=== PATIENT | male | born 1930 | race Caucasian/White ===

== ENCOUNTER 2016-10-16 06:55 | Observation (INO) | payer MEDICARE, OTHER ==
[2016-10-16 07:50] LABS: BASOPHILS 0.3 % (0.0-2.0); EOSINOPHILS 0.9 % (0.0-6.0); EOSINOPHILS# 0.1 X 10^3uL (0.0-0.4); HEMATOCRIT 51.7 % (42.0-54.0); HEMOGLOBIN 17.5 g/dL (14.0-18.0); LYMPHOCYTES 13.8 % (20.0-40.0); LYMPHOCYTES# 1.2 X 10^3uL (0.8-3.8); MEAN CELL VOLUME 92.2 fL (84.0-102.0); MEAN CORPUS. HGB CONCENTRATION 33.7 g/dL (32.0-36.0); MEAN CORPUSCULAR HEMOGLOBIN 31.1 pg (29.0-35.0); MEAN PLATELET VOLUME 9.8 fL (7.4-10.4); MONOCYTES 6.4 % (2.0-10.0); MONOCYTES# 0.5 X 10^3uL (0.2-1.0); NEUTROPHILS 78.6 % (54.0-75.0); NEUTROPHILS# 6.7 X 10^3uL (2.6-6.7); PLATELET COUNT 179 X 10^3uL (130-440); RED BLOOD COUNT 5.61 X 10^6uL (4.20-6.10); WHITE BLOOD COUNT 8.5 X 10^3uL (3.9-10.7)
[2016-10-16 08:00] LABS: BLOOD UREA NITROGEN 21 mg/dL (9-20); CHLORIDE 106 mmol/L (98-107); CREATININE 1.1 mg/dL (0.7-1.3); GLUCOSE 98 mg/dL (70-100); SODIUM 142 mmol/L (137-145)
[2016-10-16] MEDS ORDERED: HOME MEDICATION LIST NEEDED 1 EA EACH MC ONE (10:23)
[2016-10-16] MEDS ORDERED: MECLIZINE HCL 12.5 MG TABLET PO ONE (10:28)
--- NOTE | 2016-10-16 11:37 | ER PHYSICIAN DOCUMENTATION ---
Physician Documentation [facility] Name:Haseeb Broussard Age:86 yrs Sex:Male :1930 Arrival Date:10/16/2016 Time:06:55 Bed4 Private MD:Michael Shields ED, Scott Disposition: 10/16/16 10:21 Admit ordered for Smith Sutherland. Preliminary diagnosis is Dizziness - Vertigo. - Bed requested for Medical/Surgical. - Condition is Serious. - Problem is new. - Symptoms are unchanged. 23 HR OBS Yes HPI: 10/16 07:44 This 86 yrs old Male presents to ER via EMS with complaints of Vertigo. sc 07:44 The patient presents with dizziness, feeling off balance. Onset: The symptom(s)/episode sc began/occurred last night, at 22:00. Context: occurred at home, occurred while the patient was at rest, just prior to the episode the patient experienced no apparent symptoms. Modifying factors: the symptoms are aggravated by movement of head, standing up. Associated signs and symptoms: Pertinent positives: nausea, chronic urinary retention. Severity of symptoms: At their worst the symptoms were moderate. Patient's baseline: Neuro: alert but confused, The patient has a previous history of vertigo. The patient has experienced similar episodes in the past, multiple times. Historical: - Allergies: Flomax; - Home Meds: 1. donepezil oral - PMHx: urinary retention ; HYPERTENSION; OSTEOARTHRITIS; DEMENTIA; Dizziness - Vertigo (June 09, 2015); - Tetanus: < 10 years. - Ebola Screening: : Patient denies exposure to infectious person. Patient denies travel to an Ebola-affected area in the 21 days before illness onset. . - Social history: Smoking status: Patient states was never smoker of tobacco. Patient uses alcohol but reports only rare drinking. Patient/guardian denies using marijuana. ROS: 07:45 Constitutional: Negative for fever, chills, and weight loss. sc Eyes: Negative for injury, pain, redness, and discharge. ENT: Negative for injury, pain, and discharge. Neck: Negative for injury, pain, and swelling. Cardiovascular: Negative for chest pain, palpitations, and edema. Respiratory: Negative for shortness of breath, cough, wheezing, and pleuritic chest pain. Back: Negative for injury and pain. MS/Extremity: Negative for injury and deformity. 07:45 Skin: Negative for injury, rash, and discoloration. sc 07:45 Abdomen/GI: Positive for nausea. 07:45 Neuro: Positive for dizziness. Exam: Constitutional: This is a well developed, well nourished patient who is awake, alert, and in no acute distress. Head/Face: Normocephalic, atraumatic. Eyes: Pupils equal round and reactive to light, extra-ocular motions intact. Lids and lashes normal. Conjunctiva and sclera are non-icteric and not injected. Cornea within normal limits. Periorbital areas with no swelling, redness, or edema. ENT: Nares patent. No nasal discharge, no septal abnormalities noted. Tympanic membranes are normal and external auditory canals are clear. Oropharynx with no redness, swelling, or masses, exudates, or evidence of obstruction, uvula midline. Mucous membranes moist. Neck: Trachea midline, no thyromegaly or masses palpated, and no cervical lymphadenopathy. Supple, full range of motion without nuchal rigidity, or vertebral point tenderness. No meningismus. Chest/axilla: Normal chest wall appearance and motion. Nontender with no deformity. No lesions are appreciated. Cardiovascular: Regular rate and rhythm with a normal S1 and S2. No gallops, murmurs, or rubs. Normal PMI, no JVD. No pulse deficits. Respiratory: Lungs have equal breath sounds bilaterally, clear to auscultation and percussion. No rales, rhonchi or wheezes noted. No increased work of breathing, no retractions or nasal flaring. Abdomen/GI: Soft, non-tender, with normal bowel sounds. No distension or tympany. No guarding or rebound. No evidence of tenderness throughout. Back: No spinal tenderness. No costovertebral tenderness. Full range of motion. 07:49 Skin: Warm, dry with normal turgor. Normal color with no rashes, no lesions, and no sc evidence of cellulitis. 07:49 Neuro: Orientation: to person, place, Cerebellar function: unable to test, the patient has a history of dementia, Gait: is unsteady. Vital Signs: 07:13 BP 159 / 96; Pulse 70; Resp 16; Temp 98.2; Pulse Ox 90% on R/A; Pain 0/10; st 08:24 BP 157 / 86; st 08:54 BP 161 / 82; Pulse 57; Pulse Ox 94% ; st 09:00 BP 139 / 81; Pulse 58; Pulse Ox 93% ; st 09:31 BP 166 / 94; st 10:00 BP 164 / 96; Pulse Ox 90% ; st MDM: 07:27 Patient medically screened. ar 07:50 Differential diagnosis: generalized weakness, hypovolemia, idiopathic dizziness, TIA, sc vertigo. Data reviewed: vital signs, nurses notes, old medical records, lab test result(s), and as a result, I will continue to observe the patient. Counseling: I had a detailed discussion with the patient and/or guardian regarding: the historical points, exam findings, and any diagnostic results supporting the discharge/admit diagnosis, lab results. 10:21 ED course: Daughter out of state, consider assisted living and assessment for ADLs.. ar 10/16 09:41 Order name: CBC AUTO DIF, MDIF/RMOR IF IND; Complete Time: 10:15 EDNH 10/16 10:15 Interpretation: Normal. ar 10/16 09:41 Order name: BASIC METABOLIC PANEL; Complete Time: 10:15 EDMS 02 10:15 Interpretation: Normal. ar 10/16 07:39 Order name: Urine Dip; Complete Time: 07:44 ar Dispensed Medications: 10:20 Not Given (Patient Refused): Meclizine [address] Point of Care Testing: Urine Dip: 07:44 pH: 5.5; ; Specific [place]: 1.020; Ketones: Negative; Glucose: Negative; Protein: st Negative; Leukocytes: Negative; Nitrite: Negative ; Blood: Non Hemolyzed Trace; Bilirubin: Negative ; Urobilinogen: Normal Signatures: Krystyna Castro, RN Polina Beck RN RN nf Chew, Scott, MD MD ar
--- NOTE | 2016-10-16 11:37 | ER NURSING DOCUMENTATION ---
Nurse's Notes [facility] Name:Haseeb Broussard Age:86 yrs Sex:Male :1930 Arrival Date:10/16/2016 Time:06:55 Bed4 Private MD:Michael Shields Diagnosis:Dizziness - Vertigo Presentation: 10/16 07:01 Presenting complaint: EMS states: pt has had nausea dn dizziness since [address] pt states this feels like vertigo that has has had in the past. Transition of care: [facility]. Notified ED Physician of Dr. Lockwood notified. 07:01 Acuity: ELE 3 st 07:01 Method Of Arrival: EMS: 410 st 07:14 Care prior to arrival: IV initiated. gauge and site 20 G right AC Medication(s) given: st Zofran 4mg IVP. Triage Assessment: 07:12 General: Appears in no apparent distress, Behavior is cooperative. Pain: Denies pain. st Neuro: Reports dizziness, that is worst with movement. started at 10 last night. Cardiovascular: No deficits noted. Respiratory: No deficits noted. GI: Reports nausea, vomiting. Historical: - Allergies: Flomax; - Home Meds: 1. donepezil oral - PMHx: urinary retention ; HYPERTENSION; OSTEOARTHRITIS; DEMENTIA; Dizziness - Vertigo (June 09, 2015); - Tetanus: < 10 years. - Ebola Screening: : Patient denies exposure to infectious person. Patient denies travel to an Ebola-affected area in the 21 days before illness onset. . - Social history: Smoking status: Patient states was never smoker of tobacco. Patient uses alcohol but reports only rare drinking. Patient/guardian denies using marijuana. Screenin:14 Infectious Disease Risk None. Abuse screen: Denies threats or abuse. Denies injuries st from another. pt feels safe at home. Nutritional screening: No deficits noted. Assessment: 07:30 General: pt is a poor historian.. st 10:14 General: pt states that he is unable to stand for he got too dizzy with sitting up. . st Vital Signs: 07:13 BP 159 / 96; Pulse 70; Resp 16; Temp 98.2; Pulse Ox 90% on R/A; Pain 0/10; st 08:24 BP 157 / 86; st 08:54 BP 161 / 82; Pulse 57; Pulse Ox 94% ; st 09:00 BP 139 / 81; Pulse 58; Pulse Ox 93% ; st 09:31 BP 166 / 94; st 10:00 BP 164 / 96; Pulse Ox 90% ; st ED Course: 06:56 Patient arrived in ED. arc 06:56 Michael Shields MD is Private Physician. arc 07:01 Krystyna Castro RN is Primary Nurse. st 07:[address] 07:12 Johnny Lockwood MD is Attending Physician. sc 07:14 Valuables Remains with patient Patient has correct armband on for positive st identification. Bed in low position. Call light in reach. Side rails up X2. Pulse Ox - RN Monitoring Only NIBP On - RN Monitoring Only. 07:29 Assisted with urinal. Assisted with bedpan. st 07:39 Bladder Scan performed. Volume in cc: 350. st 09:31 Diet: Patient given snack. st 10:20 Smith Sutherland DO is Admitting Physician. sc 10:29 Assisted with urinal. Assisted with bedpan. Repositioned patient. nf 10:39 Assisted with urinal. Assisted with bedpan. st Administered Medications: 10:20 Not Given (Patient Refused): Meclizine [address] Point of Care Testing: Urine Dip: 07:44 pH: 5.5; ; Specific [place]: 1.020; Ketones: Negative; Glucose: Negative; Protein: st Negative; Leukocytes: Negative; Nitrite: Negative ; Blood: Non Hemolyzed Trace; Bilirubin: Negative ; Urobilinogen: Normal Output: 11:34 Urine: 20ml (Voided); Total: 20ml. st Outcome: 10:21 Decision to Admit by Provider. de 11:35 Admitted to Med/surg accompanied by nurse, via stretcher. st 11:35 Condition: stable 11:35 Report given to Gerber NAYLOR 11:35 Instructed on need to admit 11:36 Patient left the ED. nf Signatures: Krystyna Castro RN RN st Friel, Nicole, RN RN nf Chew, Scott, MD MD de Irais Lockwood, Reg Reg arc
--- NOTE | 2016-10-16 15:03 | PROGRESS NOTE: IM APSO ---
Assessment and Plan - Date of Encounter Date of Encounter: 10/16/16 (1) BPV (benign positional vertigo) Status: Acute Assessment and plan: Has apparently had recurrent episodes in the past. Essentially resolved at present but pt reluctant to go home. Is against any meds but is willing to try a once daily nonsedating antihistamine today, will try fexofenadine since that' s the only one on formulary. We discussed trial of loratadine if sx recur in the future. Current Visit: Yes - Time Spent With Patient Total time spent with greater than 50% in coordination of care (as documented) at patient's floor/unit and/or counseling patient: Greater than 35 minutes IM: PN Subjective General: no pain, no visual disturbance, no fever, no chills HEENT: no visual changes Cardiovascular: dizziness (vertigo sx now essentially resolved.), no chest pain Respiratory: no cough, no SOB Gastrointestinal: no abdominal pain, no nausea, no vomiting, no diarrhea, no constipation Genitourinary: no dysuria Musculoskeletal: no pain, no swelling, no weakness Integumentary: no rashes, no wound Neurological: other (vertigo now resolved.), no headache, no numbness, no tingling, no limb weakness IM: PN Objective Exam - I&O/Vital Signs I&O: Intake & Output 10/16/16 10/16/16 10/16/16 05:59 13:59 21:59 Weight 85.5 kg Other: Urine Appearance Clear Urine Color Yellow Stool Size Large Stool Characteristics Soft Formed Voiding Method Urinal Vital Signs: Last Vital Signs Temp 36.8 C 10/16/16 11:00 Pulse 58 L 10/16/16 11:00 Resp 18 10/16/16 13:41 BP 164/96 10/16/16 11:00 Pulse Ox 93 10/16/16 13:41 Oxygen Delivery Method Room Air - Constitutional General appearance: Present: cooperative. Absent: acute distress - Head Head exam: Present: normal inspection, normocephalic - Eye Eye exam: Present: PERRL. Absent: scleral icterus Pupils: Present: PERRL. Absent: unequal - ENT ENT exam: Present: mucous membranes moist, normal exam, normal external ear exam - Neck Neck exam: Present: normal inspection. Absent: lymphadenopathy, thyromegaly - Respiratory Respiratory exam: Present: CTAB. Absent: respiratory distress - Cardiovascular Cardiovascular exam: Present: RRR. Absent: diastolic murmur, JVD, systolic murmur - GI/Abdominal GI/Abdominal exam: Absent: mass, organomegaly, tenderness - Rectal Rectal exam: Present: deferred - Extremities Exam Extremities exam: Present: normal inspection. Absent: calf tenderness, edema, tenderness - Back Exam Back exam: Present: normal inspection. Absent: tenderness - Neurological Exam Neurological exam: Present: alert, CN II-XII intact, oriented X3, reflexes normal. Absent: motor sensory deficit - Psychiatric Psychiatric exam: Present: normal affect, normal mood - Skin Skin exam: Present: intact - Lab Labs: Laboratory Last Values WBC 8.5 X 10^3uL (3.9-10.7) 10/16/16 06:45 RBC 5.61 X 10^6uL (4.20-6.10) 10/16/16 06:45 Hgb 17.5 g/dL (14.0-18.0) 10/16/16 06:45 Hct 51.7 % (42.0-54.0) 10/16/16 06:45 MCV 92.2 fL (84.0-102.0) 10/16/16 06:45 MCH 31.1 pg (29.0-35.0) 10/16/16 06:45 MCHC 33.7 g/dL (32.0-36.0) 10/16/16 06:45 RDW 13.0 % (11.5-14.5) 10/16/16 06:45 Plt Count 179 X 10^3uL (130-440) 10/16/16 06:45 MPV 9.8 fL (7.4-10.4) 10/16/16 06:45 Neutrophils % 78.6 % (54.0-75.0) H 10/16/16 06:45 Lymphocytes % 13.8 % (20.0-40.0) L 10/16/16 06:45 Eosinophils % 0.9 % (0.0-6.0) 10/16/16 06:45 Basophils % 0.3 % (0.0-2.0) 10/16/16 06:45 Neutrophils # 6.7 X 10^3uL (2.6-6.7) 10/16/16 06:45 Lymphocytes # 1.2 X 10^3uL (0.8-3.8) 10/16/16 06:45 Monocytes 6.4 % (2.0-10.0) 10/16/16 06:45 Monocytes # 0.5 X 10^3uL (0.2-1.0) 10/16/16 06:45 Eosinophils # 0.1 X 10^3uL (0.0-0.4) 10/16/16 06:45 Basophils # 0.0 X 10^3uL (0.0-0.1) 10/16/16 06:45 Sodium 142 mmol/L (137-145) 10/16/16 06:45 Potassium 4.0 mmol/L (3.5-5.1) 10/16/16 06:45 Chloride 106 mmol/L (98-107) 10/16/16 06:45 Carbon Dioxide 26 mmol/L (22-30) 10/16/16 06:45 BUN 21 mg/dL (9-20) H 10/16/16 06:45 Creatinine 1.1 mg/dL (0.7-1.3) 10/16/16 06:45 GFR Calculation Not Reportable 10/16/16 06:45 Glucose 98 mg/dL (70-100) 10/16/16 06:45 Calcium 10.0 mg/dL (8.4-10.2) 10/16/16 06:45 Quality Questions - VTE Prophylaxis Assessment VTE Present on Admission?: No Patient at risk for venous thromboembolism?: Yes VTE Risk Level: High Risk VTE Medical Contraindication: Treatment not indicated (pt ambulatory) (1) BPV (benign positional vertigo) Qualifiers: Laterality: unspecified laterality Qualified Code(s): H81.10 - Benign paroxysmal vertigo, unspecified ear
[2016-10-16] MEDS: FEXOFENADINE HCL 180 MG TABLET PO SCH (15:20)
--- NOTE | 2016-10-16 19:31 | HISTORY & PHYSICAL ---
DATE OF ADMISSION: 10/16/16 ATTENDING PHYSICIAN: Smith Sutherland DO CHIEF COMPLAINT: Vertigo. HISTORY OF CHIEF COMPLAINT: Patient is an 86-year-old male who presents via the Emergency Room with complaint of recurrent episode of vertigo. Patient states that current episode started last evening with associated nausea and unsteady gait. He then presented himself to the Emergency Room with persistent of symptoms this morning. Patient has had prior episodes of vertigo but has declined any medication treatment for his symptoms. He has had prior physical therapy at [facility] here in [place] and has been familiar with Daquan maneuvers, but cannot demonstrate or say how he has done them in the past. At this time, patient's symptoms are essentially back to baseline, as he states that he is much better after having slept here in the hospital. ALLERGIES: Flomax as it caused him some dizziness. PAST MEDICAL HISTORY 1. Hyperlipidemia. 2. Benign prostatic hypertrophy with obstruction. 3. Hypertension. 4. 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 MEDICATIONS Aspirin 81 mg daily but denies taking any other medications at present. PAST SURGICAL HISTORY 1. Right total hip. 2. Past knee scope. 3. Cataract surgery. 4. Lumbar fusion surgery in 09/2013. SOCIAL HISTORY: Never a smoker. Alcohol includes only occasional use now having stated that in the past he drank about 2 beers per day. He is a retired [employer]. 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 FAMILY HISTORY: Father who in his 80s due to cancer of the pancreas. Mother in her 80s due to stroke. REVIEW OF SYSTEMS CONSTITUTIONAL: Negative for fever, chills or weight loss. EYES: Negative for injury, pain, redness or discharge. ENT: Negative for injury, pain or discharge. NECK: Negative for injury, pain or swelling. CARDIOVASCULAR: Negative for chest pain, palpitations or edema. RESPIRATORY: Negative for shortness of breath, cough, wheezing or pleuritic chest pain. BACK: Negative for injury or pain. MUSCULOSKELETAL/EXTREMITIES: Negative for injury or deformity. SKIN: Negative for injury, rash or discoloration. ABDOMEN: Positive for nausea. NEUROLOGIC: Positive for dizziness. PHYSICAL EXAMINATION VITAL SIGNS: Temperature 36.8, blood pressure 164/96, pulse 58, respiratory rate 18. GENERAL: Well-developed, well-nourished white male who is in no acute distress at this time. He is alert, oriented and cooperative for this evaluation. HEENT: Pupils are equally reactive to light and accomodation. Extraocular muscles are intact. Sclerae are benign. Ear canals and nasal passages are patent and unremarkable. NECK: Symmetrical without jugular venous distention, adenopathy or bruits. CHEST: Symmetrical, atraumatic, nontender to palpation. LUNGS: Clear to auscultation. HEART: Regular without murmurs, clicks or rubs. ABDOMEN: Soft, nontender without masses or organomegaly. EXTREMITIES: No evidence of clubbing, cyanosis or edema. GENITAL/RECTAL: Deferred at this time. NEUROLOGIC: Cranial nerves 2-12 motor and sensory are grossly intact within normal limits. Deep tendon reflexes are +2/4 and symmetrical. Patient is not experiencing vertigo and Hallpike maneuvers are negative at this time. LABORATORY EVALUATION: CBC included a white count of 8.5, hemoglobin 17.5, hematocrit 51.7 with a platelet count of 179,000. Blood chemistries included sodium 142, potassium 4.0, chloride 106, CO2 26, BUN 21, creatinine 1.1, glucose 98, calcium 10.8. ASSESSMENT: An 86-year-old male with recurrent episode of benign positional vertigo. Patient basically refused any medication treatment in the Emergency Room. Decision was made to admit him to the floor for observation and supportive care. HOSPITAL COURSE TO DATE: Patient had almost complete resolution of his symptoms after sleeping since this morning in the hospital. He is willing to do a trial of a once a day non-sedating antihistamine. We had discussion regarding use of Loratadine once a day as an outpatient. Here in the hospital, he will do a trial of Fexofenadine 180 mg once daily. Anticipate follow up with his primary care physician tomorrow here in the hospital Dr. Michael Shields. LUIS
[2016-10-16 23:37] VITALS: O2SAT 91
[2016-10-17 06:14] VITALS: BP 130/62; PULSE 68; RESP 15; TEMP 97.5
[2016-10-17] MEDS: FEXOFENADINE HCL 180 MG TABLET PO SCH (08:22)
--- NOTE | 2016-10-17 09:51 | PROGRESS NOTE: IM SOAP ---
IM: PN Subjective Interval history: No vertigo, dizziness, lightheadedness, dysequilibrium, abnormal vision, hearing problems, swallowing problems or speech difficulties. No cardiopulm symptoms, palpitations, N/V, GI, symptoms. No difficulties with ambulation. IM: PN Objective Exam - I&O/Vital Signs I&O: Intake & Output 10/16/16 10/17/16 10/17/16 21:59 05:59 13:59 Intake Total 240 Output Total 250 200 Balance -10 -200 Weight 85.5 kg Intake: Oral 240 Output: Urine 250 200 Other: Urine Appearance Clear Clear Clear Urine Color Yellow Yellow Yellow Stool Size Large Large Stool Characteristics Formed Formed Voiding Method Urinal Urinal Urinal # Voids 2 2 # Bowel Movements 1 Vital Signs: Last Vital Signs Temp 36.4 C L 10/17/16 06:13 Pulse 68 10/17/16 06:13 Resp 15 10/17/16 09:00 BP 130/62 10/17/16 06:13 Pulse Ox 91 10/17/16 09:00 Oxygen Delivery Method Room Air - Respiratory Respiratory exam: Present: clear. Absent: rales - Cardiovascular Cardiovascular exam: Present: RRR. Absent: systolic murmur - GI/Abdominal GI/Abdominal exam: Present: soft. Absent: tenderness - Extremities Exam Extremities exam: Absent: calf tenderness, edema - Neurological Exam Neurological exam: Present: CN II-XII intact, other. Absent: motor sensory deficit Additional comments: No vertigo with rapid head movement vertically or horizontally. No nystagmus. - Lab Labs: Laboratory Last Values WBC 8.5 X 10^3uL (3.9-10.7) 10/16/16 06:45 RBC 5.61 X 10^6uL (4.20-6.10) 10/16/16 06:45 Hgb 17.5 g/dL (14.0-18.0) 10/16/16 06:45 Hct 51.7 % (42.0-54.0) 10/16/16 06:45 MCV 92.2 fL (84.0-102.0) 10/16/16 06:45 MCH 31.1 pg (29.0-35.0) 10/16/16 06:45 MCHC 33.7 g/dL (32.0-36.0) 10/16/16 06:45 RDW 13.0 % (11.5-14.5) 10/16/16 06:45 Plt Count 179 X 10^3uL (130-440) 10/16/16 06:45 MPV 9.8 fL (7.4-10.4) 10/16/16 06:45 Neutrophils % 78.6 % (54.0-75.0) H 10/16/16 06:45 Lymphocytes % 13.8 % (20.0-40.0) L 10/16/16 06:45 Eosinophils % 0.9 % (0.0-6.0) 10/16/16 06:45 Basophils % 0.3 % (0.0-2.0) 10/16/16 06:45 Neutrophils # 6.7 X 10^3uL (2.6-6.7) 10/16/16 06:45 Lymphocytes # 1.2 X 10^3uL (0.8-3.8) 10/16/16 06:45 Monocytes 6.4 % (2.0-10.0) 10/16/16 06:45 Monocytes # 0.5 X 10^3uL (0.2-1.0) 10/16/16 06:45 Eosinophils # 0.1 X 10^3uL (0.0-0.4) 10/16/16 06:45 Basophils # 0.0 X 10^3uL (0.0-0.1) 10/16/16 06:45 Sodium 142 mmol/L (137-145) 10/16/16 06:45 Potassium 4.0 mmol/L (3.5-5.1) 10/16/16 06:45 Chloride 106 mmol/L (98-107) 10/16/16 06:45 Carbon Dioxide 26 mmol/L (22-30) 10/16/16 06:45 BUN 21 mg/dL (9-20) H 10/16/16 06:45 Creatinine 1.1 mg/dL (0.7-1.3) 10/16/16 06:45 GFR Calculation Not Reportable 10/16/16 06:45 Glucose 98 mg/dL (70-100) 10/16/16 06:45 Calcium 10.0 mg/dL (8.4-10.2) 10/16/16 06:45 Assessment and Plan - Date of Encounter Date of Encounter: 10/17/16 (1) Vertigo Status: Resolved Assessment and plan: Pt declines all meds and attributes vertigo to meds. After discussion, he is willing to take ASA. D/C Home Current Visit: Yes - Time Spent With Patient Total time spent with greater than 50% in coordination of care (as documented) at patient's floor/unit and/or counseling patient:
--- NOTE | 2016-10-17 13:35 | DISCHARGE SUMMARY ---
DATE OF ADMISSION: 10/16/16 DATE OF DISCHARGE: 10/17/16 ATTENDING PHYSICIAN: Michael Shields MD DIAGNOSIS: Vertigo. HISTORY OF PRESENT ILLNESS: Patient is an 86-year-old male who presented to the Emergency Room with a recurrent episode of vertigo. This was associated with nausea and unsteady gait. He previously declined medications for vertigo symptoms. He had been evaluated by [facility] physical therapy in the past and had received Daquan maneuvers. Please see previously dictated history and physical per Dr. Sutherland for further details. HOSPITAL COURSE: Patient was admitted with vertigo. He was started on Fexofenadine 180 mg p.o. daily. By the following day, all vertigo symptoms had resolved. Patient attributes the vertigo to his medications and he is refusing to take any medications at this time. He is agreeable to remaining on a baby aspirin once a day. Patient exhibited no signs of vertigo with rapid head movement and no nystagmus at the time of discharge. DISCHARGE INSTRUCTIONS: Patient may participate in activities as able. He is on a regular diet. He will have a follow up with Dr. Shields as needed. DISCHARGE MEDICATIONS Aspirin 81 mg p.o. daily with food. Patient declines any further Namenda, Aricept or other medications at this time. [facility]
== END 2016-10-17 09:53 | disposition home or self-care (01) ==
LOC: ER 06:55 → IN 11:24
PROVIDERS: ADMIT Family Medicine; ATTEND Family Medicine
DX: R42 Dizziness and giddiness (principal); R27.0 Ataxia, unspecified; E78.5 Hyperlipidemia, unspecified; I10 Essential (primary) hypertension; N40.0 Benign prostatic hyperplasia without lower urinary tract symptoms; Z79.82 Long term (current) use of aspirin; Z79.899 Other long term (current) drug therapy; Z74.3 Need for continuous supervision
CPT/HCPCS: 80048; 85025; 99285; A0425; A0429; G0378